=== PATIENT | female | born 2000 | race Two or more races ===

== ENCOUNTER 2021-10-27 02:12 | Emergency (ER) | payer OTHER ==
[2021-10-27 03:41] VITALS: BP 106/69; PULSE 92; TEMP 98.9; BMI 28.3
== END 2021-10-27 04:01 | disposition home or self-care (01) ==
LOC: JER 02:12
DX: N61.0 Mastitis without abscess (principal)
CPT/HCPCS: 99283-25

== ENCOUNTER 2023-12-02 21:39 | Emergency (ER) | payer OTHER ==
[2023-12-02 21:53] VITALS: BP 129/82; PULSE 78; RESP 18; TEMP 97.8; BMI 21.6
== END 2023-12-02 23:03 | disposition home or self-care (01) ==
LOC: JERFT 21:39
DX: S30.861A Insect bite (nonvenomous) of abdominal wall, initial encounter (principal); R21 Rash and other nonspecific skin eruption; L29.9 Pruritus, unspecified; W57.XXXA Bitten or stung by nonvenomous insect and other nonvenomous arthropods, initial encounter
CPT/HCPCS: 99283-25